=== PATIENT | male | born 1990 | race Caucasian/White ===

== ENCOUNTER 2017-08-13 00:39 | Emergency (ER) | payer OTHER ==
--- NOTE | 2017-08-13 00:44 | EDPHY ---
H & P Time Seen by Provider: 08/13/17 00:44 HPI/ROS: HPI CHIEF COMPLAINT: Left lower jaw line dental pain. HISTORY OF PRESENT ILLNESS: This is a 27-year-old male, otherwise healthy with no significant medical history states 5 weeks ago he had dental extraction of his wisdom teeth. All 4. States approximately 48 hr ago developed some pain and swelling to the left lower posterior jaw line. At his previous dental extraction site. He has increasing pain. Decided come the emergency room due to pain. No trouble swallowing. Denies fever. States he is due to see an oral surgeon tomorrow for follow-up. Past Medical History: Denies medical history Past Surgical History: Denies surgical Social History: denies daily use drugs alcohol tobacco. Family History: Noncontributory ROS REVIEW OF SYSTEMS: A comprehensive 10 point review of systems is otherwise negative aside from elements mentioned in the history of present illness. Exam Constitutional appears nontoxic triage nursing summary reviewed, vital signs reviewed, awake/alert. Eyes normal conjunctivae and sclera, EOMI, PERRLA. HENT oropharynx: Left lower posterior jaw line at the left molar posterior extraction site there is some swelling noted. I do not appreciate a gumline abscess., no signs of a non or Rei's, moist mucus membranes, no epistaxis, neck supple/ no meningismus, no raccoon eyes. Respiratory clear to auscultation bilaterally, normal breath sounds, no respiratory distress, no wheezing. Cardiovascular rate normal, regular rhythm, no murmur, no edema, distal pulses normal. Gastrointestinal soft, non-tender, no rebound, no guarding, normal bowel sounds, no distension, no pulsatile mass. Genitourinary no CVA tenderness. Musculoskeletal no midline vertebral tenderness, full range of motion, no calf swelling, no tenderness of extremities, no meningismus, good pulses, neurovascularly intact. Skin pink, warm, & dry, no rash, skin atraumatic. Neurologic awake, alert and oriented x 3, AAOx3, moves all 4 extremities equally, motor intact, sensory intact, CN II-XII intact, normal cerebellar, normal vision, normal speech. Psychiatric normal mood/affect. Heme/Lymph/Immune no lymphadenopathy. Differential Diagnosis: Includes but is not limited to in a particular order gumline abscess, dental infection, dry socket, infection at the extraction site Medical Decision Making: Plan for this patient will place on clindamycin. He is due to see an oral surgeon for follow-up tomorrow. He also has pain medication at home from his previous extraction. Return precautions discussed the me understands return if develops worsening swelling, pain or fever. Follow up with oral surgery. Clindamycin as prescribed with food. Not empty stomach he understands. Source: Patient Departure - Departure Disposition: Home, Routine, Self-Care Clinical Impression: Dental infection Condition: Good Instructions: Toothache (ED), Dental Abscess (ED) Additional Instructions: 1. Recommend anti-inflammatory pain medicine for mild pain. 2. Take her narcotic pain med severe having severe pain. 3. Antibiotic as prescribed. 4. Follow up with oral surgery. 5. Return emergency room if there is worsening symptoms questions or concerns. Referrals: NONE *PRIMARY CARE P,. [Primary Care Provider] - As per Instructions Michael Arnold DDS [Doctor of Dental Surgery] - As per Instructions
[2017-08-13] MEDS ORDERED: CLINDAMYCIN 150 MG CAP PO ONE (00:49)
[2017-08-13 00:51] VITALS: BP 151/105
== END 2017-08-13 01:08 | disposition home or self-care (01) ==
DX: K04.7 Periapical abscess without sinus (principal)